=== PATIENT | female | born 1990 | race Caucasian/White ===

== ENCOUNTER 2016-04-25 17:07 | Inpatient (IN) | payer BC, OTHER ==
[~2016-04-25] VITALS: Ht 160 cm; Wt 49.9 kg
[2016-04-26] VITALS (7 sets, daily range): BP systolic 111–130; BP diastolic 78–89
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
[2016-04-26] MEDS ORDERED: HYDROXYZINE PAMOATE 25 MG CAPSULE PO PRN (03:00)
[2016-04-26] MEDS ORDERED: DIAZEPAM 5 MG TABLET PO PRN (03:00)
[2016-04-26] MEDS ORDERED: MAGNESIUM HYDROXIDE 30 ML LIQUID UDC PO PRN (03:00)
[2016-04-26] MEDS ORDERED: LORAZEPAM 2 MG/1 ML VIAL IM PRN (03:00)
[2016-04-26] MEDS ORDERED: MIRALAX 17 GM POWD.PACK PO PRN (03:00)
[2016-04-26] MEDS ORDERED: ONDANSETRON ODT 4 MG TAB.RAPDIS SL PRN (03:00)
[2016-04-26] MEDS ORDERED: MAG HYDROX/AL HYDROX/SIMETH 30 ML LIQUID UDC PO PRN (03:00)
[2016-04-26] MEDS ORDERED: LOPERAMIDE HCL 2 MG CAPSULE PO PRN ×2 (03:00)
[2016-04-26] MEDS ORDERED: BUPRENORPHINE HCL 2 MG TAB.SUBL SL PRN (03:00)
[2016-04-26] MEDS ORDERED: DIAZEPAM 10 MG TABLET PO PRN ×2 (03:00)
[2016-04-26] MEDS ORDERED: diphenhydrAMINE 50 MG CAPSULE PO PRN (03:00)
[2016-04-26] MEDS ORDERED: ACETAMINOPHEN 325 MG TABLET PO PRN (03:00)
[2016-04-26] MEDS ORDERED: PROMETHAZINE HCL 25 MG/1 ML VIAL IM PRN (03:00)
[2016-04-26] MEDS ORDERED: IBUPROFEN 400 MG TABLET PO PRN (03:00)
[2016-04-26] MEDS ORDERED: QUET100T PO (03:56)
--- NOTE | 2016-04-26 04:00 | NUR ---
Vital Signs BP 111/79, pulse 88, respirations 16, SpO2 97%, temp 97.9, no pain 0/10. CIWA/COWS deferred d/t pt sleeping - to asses while pt is awake as ordered. Respirations even and unlabored. Safety measures in place, call light within reach, side rails up x2, bed locked and in low position. Will continue to monitor.
--- NOTE | 2016-04-26 07:00 | NUR ---
End of Shift Pt is a 25 year old female admitted on 04/26/2016 for Opiate/Benzo/Etoh Dependence. Pt reported consuming Fentanyl (Snort/IV) 2-3g/daily, last intake of 2-3g on 04/25/2016, pt has been using at this rate for the past 3 months, Heroin (Snort) "5 bags/daily, last intake of "5 bags" on 04/25/2016, pt has been using at this rate for the past 3 months, Xanax (Snort/PO) 8mg/daily, last intake of 8mg on 04/25/2016, pt has been using at this rate for the past 3 months, Klonopin (PO) 4-6mg/daily, last intake of 6mg on 04/25/2016, pt has been using at this rate for the past 3 months and ETOH Whiskey PO 1/2 a bottle/daily, last intake of "4 shots" on 04/25/2016, pt has been using at this rate for the past 3 months. NKA, regular diet, fall/seizure precautions - reports 2 episodes of seizures 2 years ago d/t benzo withdrawals and full code. Urine drug screen provided. COWS 5, CIWA 5, No PRN medications administered during shift, VS stable, pt slept for 4 hours, intake of 250 ml PO and voids x1. Safety measures in place, call light within reach, side rails up x2, bed locked and in low position. Endorsed to day shift nurse.
[2016-04-26 07:03] LABS: BASOPHILS % (AUTO) 0.3 % (0.0-2.0); EOSINOPHILS # (AUTO) 0.2 K/uL (0.0-0.7); EOSINOPHILS % (AUTO) 3.4 % (0.0-7.0); HEMATOCRIT 39.2 % (37.0-47.0); HEMOGLOBIN 12.9 g/dL (12.0-16.0); LYMPHOCYTES % (AUTO) 47.1 % (20.5-51.5); MEAN CORPUSCULAR HEMOGLOBIN 30.3 uug (27.0-31.0); MEAN CORPUSCULAR HGB CONC 33 g/dL (32.0-37.0); MEAN CORPUSCULAR VOLUME 91.6 fL (81.0-99.0); MONOCYTES # (AUTO) 0.5 K/uL (0.1-1.30); MONOCYTES % (AUTO) 8.6 % (0.0-11.0); NEUTROPHILS # (AUTO) 2.6 K/uL (1.8-8.9); NEUTROPHILS % (AUTO) 40.6 % (38.5-71.5); PLATELET COUNT (AUTO) 210 K/uL (150-450); RED BLOOD CELL COUNT(AUTO) 4.28 MIL/uL (4.20-5.40); RED CELL DISTRIBUTION WIDTH 12.1 % (11.5-14.5); WHITE BLOOD COUNT (AUTO) 6.3 K/uL (4.0-11.2)
[2016-04-26 07:27] LABS: *AMPHETAMINE, URINE NEGATIVE (NEGATIVE); *BARBITURATE, URINE POSITIVE (NEGATIVE); *CANNABINOID, URINE NEGATIVE (NEGATIVE); *COCCAINE, URINE POSITIVE (NEGATIVE); *OPIATE, URINE NEGATIVE (NEGATIVE); *PHENCYCLIDINE SCREEN,URINE NEGATIVE (NEGATIVE)
[2016-04-26 07:39] LABS: *URINE HCG, QUAL NEGATIVE (NEGATIVE)
--- NOTE | 2016-04-26 07:40 | NUR ---
BEGINNING OF SHIFT Patient endorsement report received from overnight babysitter nurse, all pertinent information discussed. Patient is a 25 year old female admitted on 04/26/2016 with admitting Dx:etoh/BZO/opiate dependence. Patient with past medical history of: depression, anxiety, bipolar d/o and HPV. Patient with substance use history of: fentanyl snorted/iv 2-3 gram daily for 3 months, heroin snorted "5 bags/daily" for 3 months, Xanax snorted/Po 8mg daily for 3 months, Klonopin 6mg daily for 3 months, etoh whiskey 1/2 bottle of whiskey daily for 3 months. Patient currently with no ongoing taper, and continues under close observation, patient has PRN medication available for s/sx of withdrawal. Per overnight babysitter patients last ciwa score of: 5, and last cow score of: 5, slept for 4 hours. Patient received in bed with eyes closed respirations are even and unlabored. Responsive to verbal stimuli, educated regarding plan of care for the day and medication regimen. will continue to monitor closely.
[2016-04-26 07:50] LABS: ALANINE AMINOTRANSFERASE 16 U/L (14-59); ALBUMIN 3.9 g/dL (3.4-5.0); ALKALINE PHOSPHATASE 59 U/L (50-136); AMYLASE 37 U/L (25-115); ASPARTATE AMINOTRANSFERASE 23 U/L (15-37); BILIRUBIN,TOTAL 0.2 mg/dL (0.2-1.0); CHLORIDE 102 mmol/L (98-107); GFR 69 mL/min (>60); GLUCOSE 81 mg/dL (74-106); LIPASE 93 U/L (73-393); MAGNESIUM 2.1 mg/dL (1.8-2.4); POTASSIUM 3.7 mmol/L (3.5-5.1); SODIUM SERUM 139 mmol/L (136-145); TOTAL PROTEIN, SERUM 6.6 g/dL (6.4-8.2); UREA NITROGEN, BLOOD 9 mg/dL (7-18)
[2016-04-26 08:22] LABS: CALCIUM 8.2 mg/dL (8.5-10.1); CARBON DIOXIDE 36 mmol/L (21-32)
[2016-04-26 08:26] LABS: ETHANOL < 3 MG/DL (0-0)
[2016-04-26] MEDS: FOLIC ACID 1 MG TABLET PO SCH (08:54)
[2016-04-26] MEDS: MULTIVITAMINS,THERAPEUTIC TABLET PO SCH (08:54)
[2016-04-26] MEDS: THIAMINE HCL 100 MG TABLET PO SCH (08:54)
[2016-04-26] MEDS ORDERED: THIAMINE HCL 200 MG/2 ML VIAL IM ONE (09:00)
[2016-04-26] MEDS: METHOCARBAMOL 750 MG TABLET PO PRN (09:00)
--- NOTE | 2016-04-26 09:00 | NUR ---
PRN ROBAXIN Patient c/o muscle aches 09/15 administered Robaxin 750mg Po as ordered, will monitor effectiveness.
[2016-04-26 09:11] LABS: THYROID STIMULATING HORMONE 0.643 mIU/mL (0.358-3.740)
[2016-04-26 09:21] LABS: HIV-1/2 ANTIBODY NON REACTIVE (NONREACTIVE)
[2016-04-26 09:22] LABS: HIV-1 p24 ANTIGEN NON REACTIVE (NONREACTIVE)
--- NOTE | 2016-04-26 10:00 | NUR ---
ROBAXIN REASSESSMENT Patient reports medication with relief, one hour post administration pain level 0/10, will continue to monitor closely.
--- NOTE | 2016-04-26 10:04 | NUR ---
UDS + BARBITURATES/COCAINE/BZO Patient reports she was administered barbiturates one dose of phenobarbital at a detox center, in [place] named [facility], as per patient she was there for one day cannot recall the day, but reports it was last week, patient reports she left facility AMA, and began using opiates, cocaine, bzo, and etoh. Per patient reports she has been smoking crack cocaine 1 gram every day for 3 years. MD notified will continue to monitor closely.
[2016-04-26] MEDS: QUETIAPINE FUMARATE 100 MG TABLET PO SCH (14:37)
[2016-04-26] MEDS ORDERED: LORAZEPAM 1 MG TABLET PO PRN ×2 (14:45)
[2016-04-26] MEDS ORDERED: GABAPENTIN 300 MG CAPSULE PO SCH ×2 (15:00→21:00)
--- NOTE | 2016-04-26 18:44 | NUR ---
END OF SHIFT Patient alert and oriented x4, patient compliant with therapeutic plan of care, Patient with admitting Dx: etoh/bzo/opiate dependence and is currently with no ongoing taper but has PRN medications for s/sx of withdrawal, no detox PRNs were administered during shift, patient is scheduled to begin a 5 day Ativan, and 5 day Subutex taper, tomorrow in the morning as ordered, will continue under close observation, will monitor cow/ciwa/vital signs as ordered. 0900 assessment patient presented with heart rate of 94, mild anxiety, stuffy nose, barely sweating, mild agitation, very mild itchiness to hands with cow score of: 3 and ciwa score of: 4; 1300 assessment patient presented with: heart rate of 92, flushed, stuffy nose, mild anxiety mild agitation, and barely sweating with cow score of: 5 and ciwas score of: 4; 1700 assessment patient presented with: heart rate of 96, flushed, stuffy nose, mild anxiety, mild agitation, barely sweating with cow score of: 5 and ciwa score of: 4; Patient was seen by Dr. Garcia, Seroquel was reconciled, and administered as ordered. Patient was administered PRN: Robaxin at 0900, medication effective one hour post administration. . encouraged patient adequate PO fluid intake as tolerated noted with good appetite patient, encouraged patient to attend group therapies/sessions to learn new coping skills to prevent relapse, preferred to stay in room, patient denies SI/HI. Safety measures in place. Call light with in reach, will continue to monitor closely. Patient endorsement report given to fiberglass machine operator nurse, all pertinent information discussed.
--- NOTE | 2016-04-26 20:00 | NUR ---
Start of Shift Pt is a 25 year old female admitted on 04/26/2016 for Opiate/Benzo/Etoh Dependence, placed on 5 day Ativan and 5 day Subutex taper to be started tomorrow, 04/27/2016. PRN medications available for s/s of withdrawal. Pt reported consuming Fentanyl (Snort/IV) 2-3g/daily, Heroin (Snort) "5 bags/daily, Xanax (Snort/PO) 8mg/daily, Klonopin (PO) 4-6mg/daily, last intake of 6mg on 04/25/2016, and ETOH Whiskey PO 1/2 a bottle/daily. NKA, regular diet, fall/seizure precautions - reports 2 episodes of seizures 2 years ago d/t benzo withdrawals and full code. Upon assessment, pt reports fatigue, body aches, flushed face/stuffy nose noted, respirations even and unlabored, denies SOB/chest pain, denies n/v/d, skin warm, moist and intact, bowel sounds active x4, abdomen soft. Safety measures in place, call light within reach, side rails up x2, bed locked and in low position. Will continue to monitor.
[2016-04-26] MEDS: GABAPENTIN 300 MG CAPSULE PO SCH (20:07)
[2016-04-27] VITALS: BP 130/85
--- NOTE | 2016-04-27 | NUR ---
Vital Signs BP 130/85, pulse 98, respirations 16, SpO2 97%, temp 98, no pain 0/10. CIWA/COWS deferred d/t pt sleeping - to asses while pt is awake as ordered. Respirations even and unlabored. Safety measures in place, call light within reach, side rails up x2, bed locked and in low position. Will continue to monitor.
[2016-04-27] MEDS: METHOCARBAMOL 750 MG TABLET PO PRN (02:39)
--- NOTE | 2016-04-27 02:40 | NUR ---
PRN Administration Upon awakening, pt reported muscle aches, anxiety, chills, face flushed, sweaty/clammy skin noted. BP 151/110, pulse 110. Clonidine 0.1mg PRN, Robaxin 750mg PRN and Vistaril 50mg PRN. Safety measures in place, call light within reach, side rails up x2, bed locked and in low position. Will continue to monitor.
[2016-04-27] MEDS: CLONIDINE HCL 0.1 MG TABLET PO PRN ×2 (02:49→12:51)
[2016-04-27 04:00] VITALS: BP 133/86
--- NOTE | 2016-04-27 04:00 | NUR ---
Vital Signs/PRN Reassessment BP 133/86, pulse 102, respirations 16, SpO2 97%, temp 98.1, no pain 0/10. Medications effective. CIWA/COWS deferred d/t pt sleeping - to asses while pt is awake as ordered. Respirations even and unlabored. Safety measures in place, call light within reach, side rails up x2, bed locked and in low position. Will continue to monitor.
--- NOTE | 2016-04-27 07:00 | NUR ---
End of Shift Pt is a 25 year old female admitted on 04/26/2016 for Opiate/Benzo/Etoh Dependence, placed on 5 day Ativan and 5 day Subutex taper to be started today, 04/27/2016. PRN medications available for s/s of withdrawal. Pt reported consuming Fentanyl (Snort/IV) 2-3g/daily, Heroin (Snort) "5 bags/daily, Xanax (Snort/PO) 8mg/daily, Klonopin (PO) 4-6mg/daily, last intake of 6mg on 04/25/2016, and ETOH Whiskey PO 1/2 a bottle/daily. NKA, regular diet, fall/seizure precautions - reports 2 episodes of seizures 2 years ago d/t benzo withdrawals and full code. During shift, pt presented wtih fatigue, body aches, flushed face/stuffy nose. Pt slept all throughout shift. Scheduled Gabapentin 300mg administered. Robaxin 750mg PRN, Vistaril 50mg and Clonidine 0.1mg PRN administerd. VS stable, COWS 5, CIWA 4. pt slept for 9 hours, intake of 592 ml po and voids x1. Safety measures in place, call light within reach, side rails up x2, bed locked and in low position. Endorsed to day shift nurse.
[2016-04-27 08:00] VITALS: BP 120/82
--- NOTE | 2016-04-27 08:05 | NUR ---
START OF SHIFT: RECEIVE PT A/O X 4. SHE PRESENTS WITH ANXIOUS MOOD WITH CONGRUENT AFFECT. SHE IS FIDGETY AND RESTLESS. MOIST SKIN AND PILOERECTION ON ARMS NOTED. SHE C/O SWEATS CHILLS,ANXIETY,STOMACH CRAMPS AND IRRITABILITY. COWS 27 CIWA 23 . PRN ATIVAN GIVEN SCHEDULED ATIVAN WAS NOT VERIFIED BY PHARM OF YET. SUBUTEX 4MG SL GIVEN ORDERED. SHE ALSO REPORTS PAIN AND URGENCY WITH URINATION. COLLECTED URINE ORDERED FOR C&S PER MD. ENCOURAGED INCREASED FLUIDS AND REST TO ASSIST IN FACILITATING DETOX PROCESS. PPD PLANTED TO LFA. WILL CONTINUE TO MONITOR AND PROVIDE SAFE AND SUPPORTIVE ENVIRONMENT.
[2016-04-27] MEDS: MULTIVITAMINS,THERAPEUTIC TABLET PO SCH (08:28)
[2016-04-27] MEDS: GABAPENTIN 300 MG CAPSULE PO SCH ×3 (08:28→22:03)
[2016-04-27] MEDS: THIAMINE HCL 100 MG TABLET PO SCH (08:28)
[2016-04-27] MEDS: QUETIAPINE FUMARATE 100 MG TABLET PO SCH ×2 (08:28→17:00)
[2016-04-27] MEDS: FOLIC ACID 1 MG TABLET PO SCH (08:29)
[2016-04-27] MEDS: LORAZEPAM 1 MG TABLET PO SCH ×4 (09:00→22:03)
[2016-04-27] MEDS ORDERED: TUBERCULIN,PURIF.PROT.DERIV. 5 TU/0.1 ML TEST ID ONE (09:00)
[2016-04-27] MEDS ORDERED: 5 DAY TAPER BUPRENORPHINE -SERENITY PROTOCOL SL PRN (09:00)
[2016-04-27] MEDS ORDERED: 5 DAY TAPER OF LORAZEPAM -SERENITY PROTOCOL PO PRN (09:00)
[2016-04-27] MEDS: BUPRENORPHINE HCL 2 MG TAB.SUBL SL SCH ×4 (09:08→22:03)
[2016-04-27] MEDS ORDERED: LORAZEPAM 1 MG TABLET PO ONE ×2 (11:00→23:30)
[2016-04-27] MEDS ORDERED: BUPRENORPHINE HCL 2 MG TAB.SUBL SL ONE ×2 (11:00→23:30)
--- NOTE | 2016-04-27 11:20 | NUR ---
PT CONTINUES TO EXPERIENCE SEVERE S/S OF W/D. SHE STATES " IM CRAWLING OUT OF MY SKIN". COWS 20 CIWA 21. SHE REPORTS PINS AND NEEDLES ALL OVER ,BODY ACHES, RESTLESSNESS IRRITABLY AND IS FIDGETY. MD ORDERED EXTRA DOSE OF SUBUTEX 4MG SL AND ATIVAN 2 MG PO. WILL MONITOR EFFECTIVENESS.
[2016-04-27 11:23] LABS: *BILIRUBIN,URIN NEGATIVE (NEGATIVE); *BLOOD, URINE 3+ (NEGATIVE); *CLARITY,URINE CLOUDY (CLEAR); *COLOR,URINE YELLOW (YELLOW); *KETONES,URINE NEGATIVE (NEGATIVE); LEUKOCYTE ESTERASE ,URINE 1+ (NEGATIVE); NITRITE, URINE NEGATIVE (NEGATIVE); PH,URINE 5.5 (5.0-8.0); UGLUCOSE NEGATIVE (NEGATIVE)
--- NOTE | 2016-04-27 11:50 | NUR ---
PT STATES THE ATIVAN AND SUBUTEX WAS MILDLY EFFECTIVE COWS 13 CIWA 14.
[2016-04-27 12:00] VITALS: BP 160/111
[2016-04-27 12:13] LABS: *PROTEIN,URINE 3+ (NEGATIVE)
[2016-04-27 12:14] LABS: BACTERIA,URINE MODERATE /HPF (NONE SEEN); RBC,URINE 20-50 /HPF (0-3); SQUAMOUS EPITHELIAL CELL,UR MANY /HPF (NONE SEEN); WBC,URINE TNTC /HPF (0-3)
--- NOTE | 2016-04-27 12:17 | NUR ---
MD communication notified Dr Benavidez of pt UA results, MD to enter orders as needed.
--- NOTE | 2016-04-27 12:40 | NUR ---
MACROBID ORDERED PER MD FOR UTI. WILL ADMINISTER ORDERED.
[2016-04-27] MEDS: NITROFURANTOIN/NITROFURAN MAC 100 MG CAPSULE PO SCH ×2 (12:51→22:03)
[2016-04-27 16:00] VITALS: BP 120/76
--- NOTE | 2016-04-27 16:02 | NUR ---
HELD 1500 NEURONTIN DUE TO SEDATION. RESPIRATIONS EVEN AND UNLABORED. BED LOCKED AND IN LOWEST POSITION. CALL MIX IN REACH.
--- NOTE | 2016-04-27 17:50 | NUR ---
COWS AND CIWA DEFERRED. PT IS ASLEEP. HELD 1600 SUBUTEX,ATIVAN AND SEROQUEL. RESP EVEN AND UNLABORED. BED LOCKED AND IN LOWEST POSITION. WILL CONTINUE TO PROVIDE SAFE AND SUPPORTIVE ENVIRONMENT.
--- NOTE | 2016-04-27 18:33 | NUR ---
END OF SHIFT: PT C/O CHILLS,SWEATS ,BODY ACHES AND PINS AND NEEDLES ALL OVER HER SKIN THIS AM. SHE WAS FIDGETY AND COWS WAS 27 CIWA 23 SUBUTEX INDUCTION DOSE /ATIVAN ADMINISTERED AND PT REPORTED WAS NOT EFFECTIVE. EXTRA DOSE OF SUBUTEX 4MG AND ATIVAN 2 MG ADMINISTERED AND EFFECTIVE. U/A SHOWED UTI AND NEW ORDER FOR MACROBID ADMINISTERED . 1300 LAST COWS 13 AND CIWA 14. ENCOURAGED INCREASED FLUIDS. 1500 AND 1700 MEDS HELD DUE TO SEDATION. RESPIRATIONS EVEN AND UNLABORED. CALL MIX IN REACH. BED LOCKED AND IN LOWEST POSITION. WILL PASS SHIFT REPORT TO ONCOMING NIGHT NURSE.
--- NOTE | 2016-04-27 19:15 | NUR ---
START OF SHIFT Received 25 year old female admitted on 04/26/16 for ETOH, Xanax, Klonopin, Heroin and Fentanyl dependency. Pt is full code with NKA. She reports a PMHx of depression, anxiety, bipolar and HPV. She reports using ETOH (whiskey) 1/2 bottle daily for 3 months. Last dose was 4 shots on 04/25/16. Xanax ( snort/PO) 8 mg daily for 3 months. Last dose was 8 mg on 04/25/16. Klonopin (PO) 6 mg daily for 3 months. Last dose was 6 mg on 04/25/16. Heroin (snort) 5 bags daily for 3 months. Last dose "5 bags" on 04/25/16. And Fentanyl (snort/IV) 2-3 grams daily for 3 months. Last dose 2-3 grams on 04/25/16. Pt placed on 5 day Ativan and 5 day Subutex started on 04/27/16. Per endorsement, pt with UTI which is being treated with Macrobid. Pt currently lying in bed with eyes closed noted to be asleep. Respirations 16, breathing is even and unlabored, safety measures in place. Will continue to monitor.
[2016-04-27 20:00] VITALS: BP 151/98
[2016-04-28] VITALS: BP 150/102
[2016-04-28] MEDS ORDERED: TRAZODONE 50 MG TABLET ONE (00:04)
--- NOTE | 2016-04-28 00:41 | NUR ---
ONE TIME ATIVAN/SUBUTEX Pt seen and examined by MD. Pt reported withdrawal symptoms of anxiety, agitation, restlessness, chills and sweats. One time Ativan 2 mg and Subutex 4 mg administered as ordered. COWS:10, CIWA: 10. Safety measures in place. Will continue to monitor effectiveness of medications.
--- NOTE | 2016-04-28 01:41 | NUR ---
ONE TIME ATIVAN/SUBUTEX REASSESSMENT One time orders effective. Pt lying in bed with eyes closed noted to be asleep. Respirations 16, breathing is even and unlabored. Pt safe with bed locked in lowest position, side rails up x2 and call light within reach. Will continue to monitor.
[2016-04-28 04:00] VITALS: BP 124/90
[2016-04-28] MEDS: METHOCARBAMOL 750 MG TABLET PO PRN ×3 (04:32→17:43)
[2016-04-28] MEDS: CLONIDINE HCL 0.1 MG TABLET PO PRN ×3 (04:32→22:59)
--- NOTE | 2016-04-28 04:32 | NUR ---
PRN CLONIDINE/ROBAXIN Pt complains of withdrawal symptoms such as anxiety, restlessness, agitation and body aches. COWS:12, CIWA: 11 Pt noted to be sitting in bed tearful. PRN Clonidine and Robaxin administered as ordered. Breathing even and unlabored, safety measures in place. Will continue to monitor.
--- NOTE | 2016-04-28 05:32 | NUR ---
PRN CLONIDINE/ROBAXIN REASSESSMENT PRN medications effective. Pt lying in bed with eyes closed noted to be asleep. Respirations 16, breathing is even and unlabored. Safety measures in place, will continue to monitor.
--- NOTE | 2016-04-28 07:14 | NUR ---
END OF SHIFT Pt is 25 year old female admitted on 04/26/16 for ETOH, Xanax, Klonopin, Heroin and Fentanyl dependency. Pt is full code with NKA. She reports a PMHx of depression, anxiety, bipolar and HPV. Pt placed on 5 day Ativan and 5 day Subutex started on 04/27/16. She received one time orders of Subutex 4 mg and Ativan 2 mg d/t increased COWS of 10 and CIWA 10. She received PRN catapres and Robaxin d/t complains of anxiety and body aches. She slept a total of 7hrs, Intake: 500 mL, Void: x2, BM: 0. COWS:12, CIWA: 11. Pt remains alert and oriented x4, breathing is even and unlabored, respirations 16 and safety measures in place. Endorsed to oncoming nurse.
[2016-04-28 08:00] VITALS: BP 146/109
--- NOTE | 2016-04-28 08:00 | NUR ---
Start of Shift: Received pt a/o x4. Pt presents with blunted affect and depressed mood. Pt denies S/I and H/I. Pt appears disheveled. Encouraged pt to take a shower this AM. Ativan and Subutex taper in progress. COWS 6 CIWA 4. Pt c/o feeling pins and needles all over, chills, sweats, and anxiety. Pt states she feels better today than yesterday and will try to eat and drink more fluids.Will continue to monitor and manage s/s of w/d and will provide safe and supportive environment.
[2016-04-28] MEDS: LORAZEPAM 1 MG TABLET PO SCH ×3 (08:35→21:23)
[2016-04-28] MEDS: QUETIAPINE FUMARATE 100 MG TABLET PO SCH ×2 (08:35→17:43)
[2016-04-28] MEDS: GABAPENTIN 300 MG CAPSULE PO SCH ×2 (08:35→15:00)
[2016-04-28] MEDS: THIAMINE HCL 100 MG TABLET PO SCH (08:35)
[2016-04-28] MEDS: FOLIC ACID 1 MG TABLET PO SCH (08:35)
[2016-04-28] MEDS: MULTIVITAMINS,THERAPEUTIC TABLET PO SCH (08:35)
[2016-04-28] MEDS: NITROFURANTOIN/NITROFURAN MAC 100 MG CAPSULE PO SCH ×2 (08:35→21:23)
[2016-04-28] MEDS: BUPRENORPHINE HCL 2 MG TAB.SUBL SL SCH ×3 (08:36→21:23)
[2016-04-28] MEDS: DICYCLOMINE HCL 20 MG TABLET PO PRN (10:03)
--- NOTE | 2016-04-28 10:15 | NUR ---
PT C/O FEELING BODY ACHES, STOMACH CRAMPS AND STATES SHE FEELS HOT AND COLD. PRN CLONIDINE,ROBAXIN,TYLENOL AND BENTYL GIVEN ORDERED. WILL MONITOR EFFECTIVENESS.
--- NOTE | 2016-04-28 11:14 | NUR ---
PRN MEDS EFFECTIVE. PT LAYING IN BED SLEEPING RESPIRATIONS EVEN AND UNLABORED. BED LOCKED AND IN LOWEST POSITION. CALL MIX IN REACH
[2016-04-28 12:00] VITALS: BP 116/80
--- NOTE | 2016-04-28 13:17 | NUR ---
CIWA AND COWS DEFERRED. PT IS ASLEEP. RESPIRATIONS EVEN AND UNLABORED. BED LOCKED AND IN LOWEST POSITION WITH CALL MIX IN REACH.
[2016-04-28 16:00] VITALS: BP 114/75
--- NOTE | 2016-04-28 16:08 | NUR ---
HELD 1500 MEDS PT IS SEDATED.BED LOCKED AND IN LOWEST POSITION. CALL MIX IN REACH. RESP. EVEN AND UNLABORED.
--- NOTE | 2016-04-28 18:35 | NUR ---
END OF SHIFT: PT CONTINUES ON ATIVAN SUBUTEX TAPER. LAST CIWA 5 COWS 6. THIS AM PT C/O CHILLS, BODY ACHES, STOMACH CRAMPS, PINS AND NEEDLES ALL OVER. PRN TYLENOL, BENTYL, ROBAXIN, AND CLONIDINE GIVEN AND EFFECTIVE. SEROQUEL GIVEN SCHEDULED. PT SLEPT MOST OF SHIFT AFTER MEDICATING WITH PRNS. HELD 1300 AND 1500 MEDS AND COWS AND CIWA WAS DEFERRED FOR 1300 AND 1500 DUE TO PT BEING ASLEEP. PT AWOKE FOR 1700 MEDICATION AND ATE 25% OF DINNER. ENCOURAGED INCREASED FLUIDS. PT IS RESTING IN BED WITH BED LOCKED AND IN LOWEST POSITION. CALL MIX IN REACH. SEIZURE PRECAUTIONS NOTED. WILL PASS REPORT TO ONCOMING NURSE.
--- NOTE | 2016-04-28 19:15 | NUR ---
START OF SHIFT Received 25 year old female admitted on 04/26/16 for ETOH, Xanax, Klonopin, Heroin and Fentanyl dependency. Pt is full code with NKA. She reports a PMHx of depression, anxiety, bipolar and HPV. She reports using ETOH (whiskey) 1/2 bottle daily for 3 months. Last dose was 4 shots on 04/25/16. Xanax ( snort/PO) 8 mg daily for 3 months. Last dose was 8 mg on 04/25/16. Klonopin (PO) 6 mg daily for 3 months. Last dose was 6 mg on 04/25/16. Heroin (snort) 5 bags daily for 3 months. Last dose "5 bags" on 04/25/16. And Fentanyl (snort/IV) 2-3 grams daily for 3 months. Last dose 2-3 grams on 04/25/16. Pt placed on 5 day Ativan and 5 day Subutex started on 04/27/16. Per endorsement, pt received PRN Tylenol, Bentyl, Robaxin and Clonidine. Pt is alert and oriented x4, respirations 16, breathing is even and unlabored, safety measures in place. Will continue to monitor.
[2016-04-28 20:00] VITALS: BP 130/96
[2016-04-28] MEDS ORDERED: GABAPENTIN 300 MG CAPSULE PO SCH (21:00)
--- NOTE | 2016-04-28 22:59 | NUR ---
PRN CLONIDINE/BENADRYL Pt complains of anxiety related to w/d symptoms and inability to fall asleep. PRN Clonidine and Benadryl administered as ordered. Breathing even and unlabored, safety measures in place. Will continue to monitor effectiveness of medications.
--- NOTE | 2016-04-28 23:59 | NUR ---
PRN CLONIDINE/BENADRYL REASSESSMENT Pt reports clonidine somewhat effective in decreasing anxiety. Benadryl ineffective. Pt still awake at this time. Will continue to monitor.
[2016-04-29] VITALS: BP 154/111
[2016-04-29] MEDS ORDERED: TRAZODONE 50 MG TABLET PO SCH (00:15)
--- NOTE | 2016-04-29 00:39 | NUR ---
ONE TIME TRAZODONE Pt complains of inability to sleep. One time order of Trazodone 50 mg administered as ordered. Breathing even and unlabored, safety measures in place. Will continue to monitor effectiveness.
[2016-04-29 01:00] VITALS: BP 143/106
--- NOTE | 2016-04-29 01:39 | NUR ---
TRAZODONE REASSESSMENT One time order effective. Pt lying in bed with eyes closed noted to be asleep. Respirations 16, breathing is even and unlabored, safety measures in place. Will continue to monitor.
--- NOTE | 2016-04-29 04:00 | NUR ---
VITALS 0400 vitals refused. Breathing even and unlabored, respirations 16, safety measures in place. Will continue to monitor.
--- NOTE | 2016-04-29 07:13 | NUR ---
END OF SHIFT Pt is a 25 year old female admitted on 04/26/16 for ETOH, Xanax, Klonopin, Heroin and Fentanyl dependency. Pt is full code with NKA. She reports a PMHx of depression, anxiety, bipolar and HPV. She is placed on 5 day Ativan and 5 day Subutex started on 04/27/16 and tolerating well. She received PRN Clonidine, and benadryl and one time order of Trazodone. She slept a total of 6 hrs, intake:800mL Void:x1 BM:0 COWS:7, CIWA:7. She remains alert and oriented x4, respirations 16, breathing is even and unlabored, safety measures in place. Endorsed to oncoming nurse.
--- NOTE | 2016-04-29 07:34 | NUR ---
Start of shift note; Received report from night nurse. Patient is a 25 y/o female admitted on 04/26/16 fro Fentanyl, Heroin, Xanax, Klonopin, ETOH dependence. Patient reported history of depression, anxiety, bipolar and HPV. Patient was started on 5 day Ativan and 5 day Subutex , initiated 04/27/16, no adverse reactions noted. Patient received clonidine, Benadryl last night noted to be effective. Patient's last CIWA 7, COWS 7. Patient slept for 6 hours. Will continue to monitor patient.
[2016-04-29 08:00] VITALS: BP 129/77
[2016-04-29] MEDS: NITROFURANTOIN/NITROFURAN MAC 100 MG CAPSULE PO SCH ×2 (08:48→21:12)
[2016-04-29] MEDS: LORAZEPAM 1 MG TABLET PO SCH ×4 (08:48→21:12)
[2016-04-29] MEDS: GABAPENTIN 300 MG CAPSULE PO SCH ×3 (08:48→21:12)
[2016-04-29] MEDS: FOLIC ACID 1 MG TABLET PO SCH (08:48)
[2016-04-29] MEDS: MULTIVITAMINS,THERAPEUTIC TABLET PO SCH (08:49)
[2016-04-29] MEDS: THIAMINE HCL 100 MG TABLET PO SCH (08:49)
[2016-04-29] MEDS: QUETIAPINE FUMARATE 100 MG TABLET PO SCH ×2 (08:49→16:24)
[2016-04-29] MEDS: DICYCLOMINE HCL 20 MG TABLET PO PRN (08:51)
--- NOTE | 2016-04-29 08:51 | NUR ---
PRN medications; Patient is complaining of stomach cramps/ABD spasms. PRN Bentyl 20mg PO as per ordered. Will continue to monitor patient.
[2016-04-29] MEDS ORDERED: BUPRENORPHINE HCL 2 MG TAB.SUBL SL SCH (09:00)
--- NOTE | 2016-04-29 09:43 | NUR ---
MD communication; MD notified of patient's EKG result ordered for drug interaction, no new orders noted.
--- NOTE | 2016-04-29 09:51 | NUR ---
Re-assessment; Patient stated decreased muscle spasms. PRN medication is effective. Will continue to monitor patient.
--- NOTE | 2016-04-29 11:45 | NUR ---
MD communication; MD notified of patient's Urine culture result, Per MD patient to continue on Macrobid 100mg Q12H treatment. Will closely monitor patient.
[2016-04-29 12:00] VITALS: BP 115/81
[2016-04-29 13:25] LABS: HCV AB 0.1 s/co ratio (0.0-0.9); HEPATITIS B CORE AB, IgM Negative (Negative); HEPATITIS B SURFACE AB Non Reactive (.); HEPATITIS B SURFACE AG Negative (Negative)
[2016-04-29] MEDS: CLONIDINE HCL 0.1 MG TABLET PO SCH ×2 (14:05→21:13)
[2016-04-29] MEDS: BACLOFEN 20 MG TABLET PO SCH ×2 (14:05→21:12)
[2016-04-29] MEDS: BUPRENORPHINE HCL 2 MG TAB.SUBL SL SCH ×2 (14:05→21:13)
[2016-04-29 16:00] VITALS: BP 118/91
[2016-04-29] MEDS: ESCITALOPRAM OXALATE 10 MG TABLET PO SCH (17:06)
--- NOTE | 2016-04-29 18:05 | NUR ---
End of shift; Patient is AOX4. Patient is a 25 y/o female admitted on 04/26/16 fro Fentanyl, Heroin, Xanax, Klonopin, ETOH dependence. Patient reported history of depression, anxiety, bipolar and HPV. Patient was started on 5 day Ativan and 5 day Subutex , initiated 04/27/16, no adverse reactions noted. Patient remained compliant with treatment plan. Medications were effective in reducing withdrawal symptoms. Met all needs.
--- NOTE | 2016-04-29 19:45 | NUR ---
START OF SHIFT NOTE Received report from day shift nurse. Pt is 25 y o female, admitted on 04/26/16 Opiod/ BZO/ ETOH dependence. Pt reported to use 2-3 g of Fentanyl daily, "5 bags" of heroin daily, Xanax 8 mg daily, Klonopin 6 mg daily, whiskey 375 ml daily. Pt placed on 5 day Ativan, 5 day Subutex tapers started 04/27/16 Pt aa0x4. Reports mild anxiety, mild diffuse discomfort 4/10, mild stomach cramps, chills. Skin intact, warm, dry. No tremors noted, pt denies tingling/ numbing. Lung sounds clear. Heart rate regular. Pt denies n/v/d; last BM 04/29/16. Pt denies urinary difficulties. Pt on PO Macrobid for UTI. Pt was reinforced on deep breathing, verbalized understanding. PMH of bipolar, anxiety, depression, HPV. Pt full code, regular diet, NKA. Pt on fall and seizure precautions. Side rails up x 2, bed locked in lowest position, sumaya light within reach. Will continue with plan of care.
[2016-04-29 20:00] VITALS: BP 141/98
--- NOTE | 2016-04-29 21:35 | NUR ---
RECEIVED NEW ORDER: Received one time order for Seroquel [address] Garcia. Clarified and implemented
[2016-04-29] MEDS ORDERED: QUETIAPINE FUMARATE 100 MG TABLET PO ONE (22:15)
[2016-04-29] MEDS ORDERED: QUETIAPINE FUMARATE 100 MG TABLET ONE (22:19)
--- NOTE | 2016-04-30 | NUR ---
VS, COWS, CIWA Pt refused VS and COWS/ CIWA assessment, state he wants to sleep and not to be bothered. Pt asleep, RR even and unlabored at 17 breaths per minute. Side rails up x 2, call light within reach, bed locked in lowest position. Will continue to monitor Addendum: 04/30/16 at 0450 by GINO MARQUEZ RN Amended: Links added.
--- NOTE | 2016-04-30 04:00 | NUR ---
VS, COWS, CIWA Pt refused VS and COWS/ CIWA assessment, state he wants to sleep and not to be bothered. Pt asleep, RR even and unlabored at 18 breaths per minute. Side rails up x 2, call light within reach, bed locked in lowest position. Will continue to monitor Addendum: 04/30/16 at 0450 by GINO MARQUEZ RN Amended: Links added.
--- NOTE | 2016-04-30 07:31 | NUR ---
END OF SHIFT NOTE Pt is 25 y o female, admitted on 04/26/16 Opiod/ BZO/ ETOH dependence. Pt reported to use 2-3 g of Fentanyl daily, "5 bags" of heroin daily, Xanax 8 mg daily, Klonopin 6 mg daily, whiskey 375 ml daily. Pt is on day 4 of 5 day Ativan, 5 day Subutex tapers started 04/27/16. Pt had withdrawal s/s f anxiety, stomach cramps, chills, sweating, body aches. COWS =7, CIWA 3 at 1999; pt received all scheduled medications. New one time order for HS seroquel [address] Garcia. Pt slept for 76 hrs. PO intake 1500 ml, urination x 1, BM x 1. No prn medications were given. PMH of bipolar, anxiety, depression, HPV. Pt full code, regular diet, NKA. Pt on fall and seizure precautions. Report endorsed too day shift nurse
--- NOTE | 2016-04-30 07:40 | NUR ---
START OF SHIFT NOTE: Received report from reinsurance claims analyst nurse. Pt is 25 y o female, admitted on 04/26/16 Opiate/ BZO/ ETOH dependence. Pt is on a 5 day Ativan and 5 day Subutex tapers. Tolerating well. Pt is alert and oriented X4. Color good, skin warm and dry. Respirations even and unlabored. Safety precautions observed. Call light within reach. Will continue to monitor.
[2016-04-30 08:00] VITALS: BP 153/100
[2016-04-30] MEDS: MULTIVITAMINS,THERAPEUTIC TABLET PO SCH (09:56)
[2016-04-30] MEDS: THIAMINE HCL 100 MG TABLET PO SCH (09:57)
[2016-04-30] MEDS: LORAZEPAM 1 MG TABLET PO SCH ×3 (09:57→20:43)
[2016-04-30] MEDS: BUPRENORPHINE HCL 2 MG TAB.SUBL SL SCH ×3 (09:57→20:43)
[2016-04-30] MEDS: BACLOFEN 20 MG TABLET PO SCH ×3 (09:57→20:43)
[2016-04-30] MEDS: ESCITALOPRAM OXALATE 10 MG TABLET PO SCH (09:57)
[2016-04-30] MEDS: CLONIDINE HCL 0.1 MG TABLET PO SCH (09:57)
[2016-04-30] MEDS: GABAPENTIN 300 MG CAPSULE PO SCH ×2 (09:57→14:06)
[2016-04-30] MEDS: QUETIAPINE FUMARATE 100 MG TABLET PO SCH ×2 (09:58→16:41)
[2016-04-30] MEDS: NITROFURANTOIN/NITROFURAN MAC 100 MG CAPSULE PO SCH ×2 (09:58→20:43)
[2016-04-30] MEDS: FOLIC ACID 1 MG TABLET PO SCH (09:58)
--- NOTE | 2016-04-30 10:02 | NUR ---
VSS COWS 8 CIWA 9 Pt c/o sweating, body aches, and anxiety.
[2016-04-30] MEDS ORDERED: QUETIAPINE FUMARATE 100 MG TABLET PO PRN (11:00)
[2016-04-30 12:43] VITALS: BP 134/100
[2016-04-30] MEDS ORDERED: BUPRENORPHINE HCL 2 MG TAB.SUBL SL ONE (13:00)
--- NOTE | 2016-04-30 13:02 | NUR ---
COWS 10 Pt c/o sweating, nausea, muscle aches and tremors. Extra dose Subutex 4mg sl given X1.
--- NOTE | 2016-04-30 13:40 | NUR ---
Repeat COWS 7 after Subutex extra dose. Pt states she feels improved.
[2016-04-30] MEDS: CLONIDINE HCL 0.2 MG TABLET PO SCH ×2 (14:06→20:44)
--- NOTE | 2016-04-30 14:11 | NUR ---
CIWA 7 Still with tremors, body aches
[2016-04-30] MEDS ORDERED: CLONIDINE HCL 0.1 MG TABLET PO SCH (15:00)
[2016-04-30] MEDS: METHOCARBAMOL 750 MG TABLET PO PRN (16:44)
--- NOTE | 2016-04-30 16:45 | NUR ---
Robaxin 750mg po prn given for muscle aches
--- NOTE | 2016-04-30 17:30 | NUR ---
Pt feels improved after Robaxin prn
[2016-04-30 18:39] VITALS: BP 130/100
--- NOTE | 2016-04-30 18:57 | NUR ---
END OF SHIFT NOTE: Report given to senior field service engineer nurse. Pt is 25 y o female, admitted on 04/26/16 Opiate/ BZO/ ETOH dependence. Pt is on a 5 day Ativan and 5 day Subutex tapers. Tolerating well. Pt is alert and oriented X4. Color good, skin warm and dry. Respirations even and unlabored. Extra dose Subutex 4mg sl given X1 @ 1300 for COWS 10. Robaxin 750 mg po prn @ 1645. Vital signs have remained stable throughout shift. Last COWS 7 CIWA 7 @ 1700. Respirations even and unlabored. Safety precautions observed. Call light within reach.
--- NOTE | 2016-04-30 19:45 | NUR ---
START OF SHIFT NOTE Received report from day shift nurse. Pt is 25 y o female, admitted on 04/26/16 Opiod/ BZO/ ETOH dependence. Pt reported to use 2-3 g of Fentanyl daily, "5 bags" of heroin daily, Xanax 8 mg daily, Klonopin 6 mg daily, whiskey 375 ml daily. Pt is on day 4 of 5 day Ativan, 5 day Subutex tapers started 04/27/16. PMH of bipolar, anxiety, depression, HPV. Pt full code, regular diet, NKA. Pt aa0x4, calm and cooperative. Pt c/o mild anxiety, mild diffuse discomfort /10, mild stomach cramps, chills; noted minimal fingertip to fingertip tremors. Skin intact, warm, dry. Lung sounds clear. Heart rate regular. Pt denies n/v/d; last BM 04/30/16. Pt on PO Macrobid for UTI, denies pain/ burning on urination, states urine is "sometimes" cloudy, denies foul odor. Pt encouraged to increase PO fluids, verbalized understanding. Pt on fall and seizure precautions. Side rails up x 2, bed locked in lowest position, call light within reach. Will continue with plan of care.
[2016-04-30 20:00] VITALS: BP 148/104
[2016-04-30] MEDS ORDERED: GABAPENTIN 300 MG CAPSULE PO SCH (21:00)
[2016-04-30 22:30] VITALS: BP 138/76
--- NOTE | 2016-04-30 22:30 | NUR ---
PRN SEROQUEL Pt c/o insomnia. HR 89, BP 138/76. Administered prn Seroquel 100 mg for insomnia as ordered. Fall and seizure precautions in place. Will continue to monitor
--- NOTE | 2016-04-30 23:30 | NUR ---
REASSESSMENT Pt in bed with eyes closed. RR even and unlabored. Fall/ seizure precautions in place. Will continue to monitor
--- NOTE | 2016-05-01 | NUR ---
VS, COWS, CIWA Pt refused VS and COWS/ CIWA assessment, stated she wants to sleep and not to be bothered. Pt asleep, RR even and unlabored at 16 breaths per minute. Side rails up x 2, call light within reach, bed locked in lowest position. Will continue to monitor Addendum: 05/01/16 at 0320 by GINO MARQUEZ RN Amended: Links added.
--- NOTE | 2016-05-01 04:00 | NUR ---
VS, COWS, CIWA Pt refused VS and COWS/ CIWA assessment, state she wants to sleep and not to be bothered. Pt asleep, RR even and unlabored at 19 breaths per minute. Side rails up x 2, call light within reach, bed locked in lowest position. Will continue to monitor Addendum: 05/01/16 at 2741 by GINO MARQUEZ RN Amended: Links added.
--- NOTE | 2016-05-01 07:24 | NUR ---
END OF SHIFT NOTE Pt is 25 y o female, admitted on 04/26/16 Opiod/ BZO/ ETOH dependence. Pt reported to use 2-3 g of Fentanyl daily, "5 bags" of heroin daily, Xanax 8 mg daily, Klonopin 6 mg daily, whiskey 375 ml daily. Pt is on day 5 of 5 day Ativan, 5 day Subutex tapers started 04/27/16. Pt had withdrawal s/s f anxiety, stomach cramps, chills, sweating, body aches, insomnia, flushed face. COWS =5, CIWA 3 at 1999; pt received all scheduled medications. VSS. Pt received prn Seroquel at 2230, was effective, pt slept for5 hrs. PO intake 472 ml, urination x 2. PMH of bipolar, anxiety, depression, HPV. Pt full code, regular diet, NKA. Pt on fall and seizure precautions. Report endorsed too day shift nurse
[2016-05-01 08:00] VITALS: BP 151/100
--- NOTE | 2016-05-01 08:12 | NUR ---
START OF SHIFT NOTE Received report from night nurse, 25 year old female admitted for Opiate/Benzo/Etoh Dependence. NKA, Regular diet, Full code/Fall/seizure precautions. Pt cont with 5 day Ativan and 5 day Subutex taper. Pt reported consuming Fentanyl (Snort/IV) 2-3g/daily, Heroin (Snort) "5 bags/daily, Xanax (Snort/PO) 8mg/daily, Klonopin (PO) 4-6mg/daily, last intake of 6mg on 04/25/2016, and ETOH Whiskey PO 1/2 a bottle/daily. Pt reported 2 episodes of seizures 2 years ago d/t benzo withdrawals. Pt cont with Macrobid for UTI, Pt received PRN Seroquel effective, Pt slept for 5 hours, Last CIWA-5, COWS-4. Upon assessment, pt is alert & oriented x4. No shortness of breath noted. Respiration even & unlabored. Abdomen soft & non-distended. Bowel sounds active in all four quadrants. No nausea/vomiting noted. Patient denies SI/HI. No hand tremors noted. Safety measures in place, call light within reach. Will cont to monitor.
[2016-05-01] MEDS: ESCITALOPRAM OXALATE 10 MG TABLET PO SCH (08:46)
[2016-05-01] MEDS: FOLIC ACID 1 MG TABLET PO SCH (08:46)
[2016-05-01] MEDS: MULTIVITAMINS,THERAPEUTIC TABLET PO SCH (08:46)
[2016-05-01] MEDS: GABAPENTIN 300 MG CAPSULE PO SCH ×3 (08:46→21:21)
[2016-05-01] MEDS: THIAMINE HCL 100 MG TABLET PO SCH (08:46)
[2016-05-01] MEDS: BACLOFEN 20 MG TABLET PO SCH ×3 (08:47→21:20)
[2016-05-01] MEDS: CLONIDINE HCL 0.2 MG TABLET PO SCH ×3 (08:47→21:20)
[2016-05-01] MEDS: BUPRENORPHINE HCL 2 MG TAB.SUBL SL SCH ×2 (08:47→21:20)
[2016-05-01] MEDS: NITROFURANTOIN/NITROFURAN MAC 100 MG CAPSULE PO SCH ×2 (08:47→21:20)
[2016-05-01] MEDS: QUETIAPINE FUMARATE 100 MG TABLET PO SCH ×2 (08:47→16:11)
[2016-05-01] MEDS: LORAZEPAM 1 MG TABLET PO SCH ×2 (08:47→21:19)
[2016-05-01] MEDS ORDERED: BUPRENORPHINE HCL 2 MG TAB.SUBL SL SCH (09:00)
[2016-05-01] MEDS ORDERED: QUETIAPINE FUMARATE 100 MG TABLET PO PRN (09:30)
[2016-05-01 12:00] VITALS: BP 136/98
[2016-05-01] MEDS: DICYCLOMINE HCL 20 MG TABLET PO SCH ×2 (14:00→21:20)
[2016-05-01 16:00] VITALS: BP 121/82
[2016-05-01] MEDS ORDERED: CLONIDINE HCL 0.1 MG TABLET PO ONE (16:00)
[2016-05-01] MEDS ORDERED: BUPRENORPHINE HCL 2 MG TAB.SUBL SL ONE (16:00)
--- NOTE | 2016-05-01 16:08 | NUR ---
SUBUTEX 2MG X1/CLONIDINE 0.2MG DOSE Pt reported anxiety, chills, tremors, yawning,agitation, COWS noted 9. MD aware. New order received for Subutex 2mg x1 dose, and Clonidine 0.2mg orders entered by MD. Administered as ordered. Safety measures in place, call light within reach. Will cont to monitor.
--- NOTE | 2016-05-01 16:38 | NUR ---
REASSESSMENT upon reassessment pt reported medication effective, COWS noted-3. Needs met.
[2016-05-01] MEDS ORDERED: IBUPROFEN 600 MG TABLET PO PRN (17:15)
--- NOTE | 2016-05-01 19:02 | NUR ---
START OF SHIFT NOTE Patient is a 25 years old women admitted to [facility] for Benzo/ETOH/Opiate Dependence , placed on 5 day Ativan taper and 5 day Subutex ordered taper initiated on 04/27/2016. Today is day 5. Patient tolerating the taper well. NKA; Regular Diet; Full Code; Fall and Seizures Precautions. Patient reports History of Seizures: "2 episodes of Seizures 2 years ago ", r/t withdrawals. Substance Use History: 1. Xanax (Snort/PO) "8 mg daily"; Last used "6 mg" on 04/25/2016; 2. Clonazepam (Klonopin ) PO " 4- 6 mg /daily"; Last used "6 mg" on 04/25/2016; 3. ETOH/ Whiskey "1/2 bottle of Whiskey daily. Last used "4 shots of Whiskey " on 04/25/2016; 4. Heroine (Snort) "5bags/daily". Last snort "5 bags" on 04/2016. 5. Fentanyl (Snort/IV)2-3 grams /daily. Last use "2-3 grams" on 04/2016. Upon assessment CIWA 4; COWS 4: Patient presents with mild withdrawal s/s: anxiety, restlessness, bones and muscles aches. VS: T: 97'9; BP:123/82; HR: 74; RR 17; O2 Sat: 99%; Pain level 5 by 0-10 pain scale. Patient remains compliant with medications and diet regime. Breathing is unlabored and even. Lungs Sounds are clear bilaterally. Patient denies SOB and chest pain. BS is active in all x 4 quadrants. Abdomen is soft. Urine is clear, yellow. Patient denies pain during urination. Safety measures on the place: Call Light within reach; Bed in the lowest position and locked; Bed rails upx2. Will continue to monitor.
--- NOTE | 2016-05-01 19:02 | NUR ---
END OF SHIFT NOTE Gave report to night nurse, 25 year old female admitted for Opiate/Benzo/Etoh Dependence. NKA, Regular diet, Full code/Fall/seizure precautions. Pt cont with 5 day Ativan and 5 day Subutex taper. Pt reported consuming Fentanyl (Snort/IV) 2-3g/daily, Heroin (Snort) "5 bags/daily, Xanax (Snort/PO) 8mg/daily, Klonopin (PO) 4-6mg/daily, last intake of 6mg on 04/25/2016, and ETOH Whiskey PO 1/2 a bottle/daily. Pt reported 2 episodes of seizures 2 years ago d/t benzo withdrawals. Pt cont with Macrobid for UTI, tolerating well no s/s of burning sensation reported by the pt. Encouraged Po fluids as tolerated. Pt received x1 dose of Subutex 2mg/ Clonidine for COWS-9, medication effective with low COWS score noted 3. Pt attended groups and activities. Pt's total intake 2399ml, voided x4, with x1 BM Safety measures in place, call light within reach. Pt endorsed to night nurse in stable condition.
[2016-05-01 20:00] VITALS: BP 123/82
[2016-05-01] MEDS: QUETIAPINE FUMARATE 200 MG TABLET PO PRN (21:30)
--- NOTE | 2016-05-01 21:30 | NUR ---
PRN SEROQUEL PO ADMINISTRATION Patient c/ insomnia and asked sleep aid. Ordered PRN Seroquel PO discussed with patient Patient was educated for actions, adverse reactions and side effects of Seroquel. Patient return her knowledge back by verbalizing understanding. PRN Seroquel PO administrated as ordered with full 250 ml of water. Patient tolerated well. Safety measures in place by hospital policy: Call Light within reach; Bed in the lowest position and locked; bed rails up x2. Will continue to monitor.
--- NOTE | 2016-05-01 22:30 | NUR ---
REASSESSMENT Patient is lying down on her bed with closed eyes quietly. She is sleeping. RR: 14Breathing is unlabored and even PRN Seroquel PO's effective. Safety measures on the place: Call Light within reach; Bed in the lowest position and locked; Bed rails upx2. Will continue to monitor.
[2016-05-02 04:00] VITALS: BP 113/77
--- NOTE | 2016-05-02 07:18 | NUR ---
END OF SHIFT NOTE Patient endorsed to day shift nurse in stable condition. SBAR report given. Patient is a 25 years old women admitted to [facility] for Benzo/ETOH/Opiate Dependence , placed on 5 day Ativan taper and 5 day Subutex ordered taper initiated on 04/27/2016. Patient tolerating the taper well. Substance Use History: 1. Xanax (Snort/PO) "8 mg daily"; Last used "6 mg" on 04/25/2016; 2. Clonazepam (Klonopin ) PO " 4- 6 mg /daily"; Last used "6 mg" on 04/25/2016; 3. ETOH/ Whiskey "1/2 bottle of Whiskey daily. Last used "4 shots of Whiskey " on 04/25/2016; 4. Heroine (Snort) "5bags/daily". Last snort "5 bags" on 04/2016. 5. Fentanyl (Snort/IV)2-3 grams /daily. Last use "2-3 grams" on 04/2016. NKA; Regular Diet; Full Code; Fall and Seizures Precautions. Patient reports History of Seizures: "2 episodes of Seizures 2 years ago ", r/t withdrawals. CIWA decreased from 4 to 2; COWS decreased from 4 to 2. During shift, patient presented with anxiety, agitation; nervousness; depression; restlessness, bones and muscle aches. VS WNL. Pain level 5 by 0-10 pain scale. Patient remains compliant with medications and diet regime. PRN Seroquel PO for insomnia, administrated to patient's effective. Patient slept 7,25 hours; Intake: 1,796 ml; Voided x2; BM x1. Patient compliant with treatment plan. Safety measures on place by hospital policy: Call light within reach; Bed in lowest position and locked; side rails up x2.
[2016-05-02 08:00] VITALS: BP 154/99
--- NOTE | 2016-05-02 08:10 | NUR ---
START OF SHIFT NOTE Received report from night nurse, 25 year old female admitted for Opiate/Benzo/ETOH Dependence. NKA, Regular diet, Full code/Fall/seizure precautions. Pt cont with 5 day Ativan and 5 day Subutex taper. Pt reported consuming Fentanyl (Snort/IV) 2-3g/daily, Heroin (Snort) "5 bags/daily, Xanax (Snort/PO) 8mg/daily, Klonopin (PO) 4-6mg/daily, last intake of 6mg on 04/25/2016, and ETOH Whiskey PO 1/2 a bottle/daily. Pt reported 2 episodes of seizures 2 years ago d/t benzo withdrawals. Pt cont with Macrobid for UTI, and cont with 5 days Ativan/ Subutex taper tolerating well. Pt received PRN Seroquel effective, Pt slept for 7 hours, Last CIWA-2, COWS-2. Upon assessment pt is sleeping in his room in stable condition, responsive to verbal and tactile stimuli. Breathing normal no SOB noted, respiration even non labored. Skin intact warm and dry to touch. Safety measures in place, call light within reach. Will cont to monitor.
[2016-05-02] MEDS: BACLOFEN 20 MG TABLET PO SCH ×3 (08:34→20:57)
[2016-05-02] MEDS: GABAPENTIN 300 MG CAPSULE PO SCH ×3 (08:34→20:57)
[2016-05-02] MEDS: ESCITALOPRAM OXALATE 10 MG TABLET PO SCH (08:34)
[2016-05-02] MEDS: FOLIC ACID 1 MG TABLET PO SCH (08:34)
[2016-05-02] MEDS: NITROFURANTOIN/NITROFURAN MAC 100 MG CAPSULE PO SCH ×2 (08:34→20:57)
[2016-05-02] MEDS: MULTIVITAMINS,THERAPEUTIC TABLET PO SCH (08:34)
[2016-05-02] MEDS: QUETIAPINE FUMARATE 100 MG TABLET PO SCH ×2 (08:34→17:31)
[2016-05-02] MEDS: DICYCLOMINE HCL 20 MG TABLET PO SCH ×3 (08:35→20:57)
[2016-05-02] MEDS: CLONIDINE HCL 0.2 MG TABLET PO SCH ×3 (08:35→20:57)
[2016-05-02] MEDS: THIAMINE HCL 100 MG TABLET PO SCH (08:35)
[2016-05-02] MEDS ORDERED: BUPRENORPHINE HCL 2 MG TAB.SUBL SL SCH (09:00)
[2016-05-02 12:00] VITALS: BP 116/83
[2016-05-02] MEDS ORDERED: KETOROLAC TROMETHAMINE 30 MG INJ IM PRN (13:15)
--- NOTE | 2016-05-02 13:24 | NUR ---
PRN TORADOL/CLONIDINE X1 DOSE Pt c/o lower back pain, aching, throbbing 9/10, chills, anxiety. PRN Toradol 30ml IM/ Clonidine 0.2mg administered as ordered. Will cont to monitor. Safety measures in place.
[2016-05-02] MEDS ORDERED: CLONIDINE HCL 0.1 MG TABLET PO ONE (13:30)
--- NOTE | 2016-05-02 14:24 | NUR ---
REASSESSMENT Upon reassessment pt reported medications effective pain subside to 2/10, no anxiety. Will cont to monitor.
[2016-05-02 16:00] VITALS: BP 112/77
--- NOTE | 2016-05-02 19:12 | NUR ---
END OF SHIFT NOTE Gave report to night nurse, 25 year old female admitted for Opiate/Benzo/Etoh Dependence. NKA, Regular diet, Full code/Fall/seizure precautions. Pt cont with 5 day Ativan and 5 day Subutex taper. Pt reported consuming Fentanyl (Snort/IV) 2-3g/daily, Heroin (Snort) "5 bags/daily, Xanax (Snort/PO) 8mg/daily, Klonopin (PO) 4-6mg/daily, last intake of 6mg on 04/25/2016, and ETOH Whiskey PO 1/2 a bottle/daily. Pt reported 2 episodes of seizures 2 years ago d/t benzo withdrawals. Pt completed her taper well. Pt cont with Macrobid for UTI, tolerating well no s/s of burning sensation reported by the pt. Encouraged Po fluids as tolerated. Pt received PRN Toradol IM for lower back pain and Clonidine x1 dose noted to be effective. Last COWS score noted 3/CIWA noted -3. Pt attended groups and activities. Pt scheduled for discharge in AM. Pt's total intake 1791ml, voided x4. Safety measures in place, call light within reach. Pt endorsed to night nurse in stable condition
[2016-05-02 20:00] VITALS: BP 102/62
--- NOTE | 2016-05-02 20:00 | NUR ---
START OF SHIFT NOTE Received report from day shift nurse. Pt is 25 y o female, admitted on 04/26/16 Opiod/ BZO/ ETOH dependence. Pt reported to use 2-3 g of Fentanyl daily, "5 bags" of heroin daily, Xanax 8 mg daily, Klonopin 6 mg daily, whiskey 375 ml daily. Pt completed 5 day Ativan 5 day Subutex tper, scheduled for discharge on 05/03/16. PMH of bipolar, anxiety, depression, HPV. Pt full code, regular diet, NKA. Pt aa0x4, calm and cooperative. Pt c/o mild anxiety, minimal body aches 2/10, chills on/off; no tremors noted. Skin intact, warm, dry. Lung sounds clear. Heart rate regular. Pt denies n/v/d; bowel sounds active. Pt on PO Macrobid for UTI, denies pain/ burning on urination. Pt on fall and seizure precautions. Side rails up x 2, bed locked in lowest position, call light within reach. Will continue with plan of care.
[2016-05-02] MEDS: QUETIAPINE FUMARATE 200 MG TABLET PO PRN (21:48)
--- NOTE | 2016-05-02 21:48 | NUR ---
PRN SEROQUEL Pt c/o insomnia. Administered Seroquel PO prn 200 mg as ordered. Fall and seizure precautions in place.
--- NOTE | 2016-05-02 22:30 | NUR ---
REASSESSMENT Pt resting with eyes closed, RR unlabored and even. Will continue to monitor
[2016-05-02 23:46] LABS: *AMPHETAMINE, URINE NEGATIVE (NEGATIVE); *BARBITURATE, URINE NEGATIVE (NEGATIVE); *CANNABINOID, URINE NEGATIVE (NEGATIVE); *COCCAINE, URINE POSITIVE (NEGATIVE); *OPIATE, URINE NEGATIVE (NEGATIVE); *PHENCYCLIDINE SCREEN,URINE NEGATIVE (NEGATIVE)
--- NOTE | 2016-05-03 | NUR ---
VS, COWS, CIWA Pt refused VS and COWS/ CIWA assessment, state he wants to sleep and not to be bothered. Pt asleep, RR even and unlabored at 16 breaths per minute. Side rails up x 2, call light within reach, bed locked in lowest position. Will continue to monitor Addendum: 05/03/16 at 0714 by GINO MARQUEZ RN Amended: Links added.
--- NOTE | 2016-05-03 04:00 | NUR ---
VS, COWS, CIWA Pt refused VS and COWS/ CIWA assessment, state he wants to sleep and not to be bothered. Pt asleep, RR even and unlabored at 19 breaths per minute. Side rails up x 2, call light within reach, bed locked in lowest position. Will continue to monitor Addendum: 05/03/16 at 0714 by GINO MARQUEZ RN Amended: Links added.
--- NOTE | 2016-05-03 07:41 | NUR ---
END OF SHIFT NOTE Pt is 25 y o female, admitted on 04/26/16 Opiod/ BZO/ ETOH dependence. Pt reported to use 2-3 g of Fentanyl daily, "5 bags" of heroin daily, Xanax 8 mg daily, Klonopin 6 mg daily, whiskey 375 ml daily. Pt completed 5 day Ativan taper, scheduled for discharge 05/03/16. UDS collected and resulted, discharge orders ready and placed in chart. Pt c/o anxiety, last COWS 2. VSS. Pt received prn Seroquel 200 mg PO at 2148, was effective. Pt slept for 7 hrs; PO intake 1656 ml, urination 3. PMH of bipolar, anxiety, depression, HPV. Pt full code, regular diet, NKA.. Pt is on fall and seizure precautions. Pt full code , regular diet, NKA. Call light within reach, side rails up x 2, bed locked in lowest position. Report endorsed to days shift
--- NOTE | 2016-05-03 07:51 | NUR ---
START OF SHIFT NOTE Received report from night nurse, 25 year old female admitted for Opiate/Benzo/ETOH Dependence. NKA, Regular diet, Full code/Fall/seizure precautions. Pt cont with 5 day Ativan and 5 day Subutex taper. Pt reported consuming Fentanyl (Snort/IV) 2-3g/daily, Heroin (Snort) "5 bags/daily, Xanax (Snort/PO) 8mg/daily, Klonopin (PO) 4-6mg/daily, last intake of 6mg on 04/25/2016, and ETOH Whiskey PO 1/2 a bottle/daily. Pt reported 2 episodes of seizures 2 years ago d/t benzo withdrawals. Pt cont with Macrobid for UTI, and completed 5 days Ativan/ Subutex taper tolerated well without any s/s of ASE. Pt received PRN Seroquel effective, Pt slept for 7 hours, Last CIWA-2, COWS-2. Upon assessment pt is alert awake oriented x4 in stable condition, pt is excited about being discharge. Skin intact warm and dry to touch. Safety measures in place, call light within reach. Will cont to monitor.
[2016-05-03 08:00] VITALS: BP 122/82
[2016-05-03] MEDS ORDERED: Gabapentin PO (08:01)
[2016-05-03] MEDS ORDERED: HYDR-3895 PO (08:01)
[2016-05-03] MEDS ORDERED: Baclofen PO (08:01)
[2016-05-03] MEDS ORDERED: Ibuprofen PO (08:01)
[2016-05-03] MEDS ORDERED: CLON0.2T12 PO (08:01)
[2016-05-03] MEDS ORDERED: DICY20TA28 PO (08:01)
[2016-05-03] MEDS: GABAPENTIN 300 MG CAPSULE PO SCH (08:23)
[2016-05-03] MEDS: DICYCLOMINE HCL 20 MG TABLET PO SCH (08:23)
[2016-05-03] MEDS: BACLOFEN 20 MG TABLET PO SCH (08:23)
[2016-05-03] MEDS: FOLIC ACID 1 MG TABLET PO SCH (08:23)
[2016-05-03] MEDS: NITROFURANTOIN/NITROFURAN MAC 100 MG CAPSULE PO SCH (08:23)
[2016-05-03] MEDS: THIAMINE HCL 100 MG TABLET PO SCH (08:23)
[2016-05-03] MEDS: ESCITALOPRAM OXALATE 10 MG TABLET PO SCH (08:23)
[2016-05-03] MEDS: MULTIVITAMINS,THERAPEUTIC TABLET PO SCH (08:23)
[2016-05-03] MEDS: QUETIAPINE FUMARATE 100 MG TABLET PO SCH (08:23)
[2016-05-03 08:25] VITALS: BP 122/82
[2016-05-03] MEDS: CLONIDINE HCL 0.2 MG TABLET PO SCH (08:25)
--- NOTE | 2016-05-03 10:05 | NUR ---
DISCHARGE NOTE Pt was admitted for Opiate/BENZO and ETOH dependence. Pt has a COWS of 0 and a CIWA of 0. Pt has completed a Ativan and Subutex taper without any ASE. Pt states that she feels ready for discharge. Denies any SI/HI. VS are WNL. All needs addressed at this time. Pt verbalized his understanding of the discharge instructions. Pt medications, discharge instructions and valuable secured in duffle bag then given to the STRUCTURAL MANAGER. Pt ID band removed, pt ambulated off of unit in stable condition with STRUCTURAL MANAGER, left facility via private vehicle for [facility].
== END 2016-05-03 10:05 | disposition other institution (70) | DRG 895 ==
LOC: SRC 04-26 01:23
PROVIDERS: ADMIT Internal Medicine; ATTEND Internal Medicine
PROC: HZ2ZZZZ Detoxification Services for Substance Abuse Treatment (ICD-10-PCS; principal; 2016-04-26)
PROC: HZ31ZZZ Individual Counseling for Substance Abuse Treatment, Behavioral (ICD-10-PCS; 2016-04-28)
PROC: HZ41ZZZ Group Counseling for Substance Abuse Treatment, Behavioral (ICD-10-PCS; 2016-04-29)
DX: F11.23 Opioid dependence with withdrawal (principal); F31.62 Bipolar disorder, current episode mixed, moderate; E87.3 Alkalosis; N30.00 Acute cystitis without hematuria; F13.230 Sedative, hypnotic or anxiolytic dependence with withdrawal, uncomplicated; F10.230 Alcohol dependence with withdrawal, uncomplicated; Z91.14 Patient's other noncompliance with medication regimen; F17.210 Nicotine dependence, cigarettes, uncomplicated; F41.9 Anxiety disorder, unspecified; E86.0 Dehydration; Y90.9 Presence of alcohol in blood, level not specified; B95.7 Other staphylococcus as the cause of diseases classified elsewhere; F14.10 Cocaine abuse, uncomplicated; I10 Essential (primary) hypertension; Z79.899 Other long term (current) drug therapy
CPT/HCPCS: 36415; 70030-TC; 80307; 80345; 80346; 80353; 83690; 83735; 84443; 84703; 85025; 86580; 86592; 86705; 86706; 86803; 87077; 87086; 87340; 87806; 93005; A4663; G6040-TC; J1885; J3411; Q0163